=== PATIENT | male | born 1990 | race Caucasian/White ===

== ENCOUNTER 2018-09-25 13:04 | Emergency (ER) | payer OTHER ==
[2018-09-25 13:23] VITALS: BP 104/65
--- NOTE | 2018-09-25 14:32 | UC ---
Hand/Wrist HPI - HPI Summary HPI Summary: 27 yo male injured right right in lab trying to open a autoclave. [place] he is right handed unable to supinate right wrist without pain pain is ulnar aspect - History Of Current Complaint Chief Complaint: UCUpperExtremity Stated Complaint: WRIST INJURY Time Seen by Provider: 09/25/18 14:16 Hx Obtained From: Patient Onset/Duration: Sudden Onset Severity Initially: Moderate Severity Currently: Mild Pain Intensity: 5 - with movement-declines analgesic Pain Scale Used: 0-10 Numeric Character Of Pain: Aching Aggravating Factor(s): Movement, Extension Alleviating Factor(s): Rest Associated Signs And Symptoms: Positive: Negative Related History: Dominant Hand Right Hands: 1 - tender - Allergies/Home Medications Allergies/Adverse Reactions: Allergies Allergy/AdvReac Type Severity Reaction Status Date / Time No Known Allergies Allergy Verified 09/25/18 13:24 Home Medications: Home Medications NK [No Home Medications Reported] 09/25/18 [History Confirmed 09/25/18] PMH/Surg Hx/FS Hx/Imm Hx Previously Healthy: Yes - Surgical History Surgical History: None - Family History Known Family History: Positive: Hypertension, Other - stomach CA - Social History Alcohol Use: None Substance Use Type: None Smoking Status (MU): Never Smoked Tobacco Review of Systems All Other Systems Reviewed And Are Negative: Yes Constitutional: Positive: Negative Skin: Positive: Negative Eyes: Positive: Negative ENT: Positive: Negative Respiratory: Positive: Negative Cardiovascular: Positive: Negative Gastrointestinal: Positive: Negative Genitourinary: Positive: Negative Motor: Positive: Negative Neurovascular: Positive: Negative Musculoskeletal: Positive: Arthralgia Neurological: Positive: Negative Psychological: Positive: Negative Physical Exam Triage Information Reviewed: Yes Appearance: Well-Appearing, No Pain Distress, Well-Nourished Vital Signs: Initial Vital Signs Temp 99 F 09/25/18 13:20 Pulse 82 09/25/18 13:20 Resp 18 09/25/18 13:20 BP 104/65 09/25/18 13:20 Pulse Ox 100 09/25/18 13:20 Vital Signs Reviewed: Yes Eyes: Positive: Conjunctiva Clear ENT: Positive: Hearing grossly normal. Negative: Nasal congestion, Nasal drainage, Trismus, Muffled voice, Hoarse voice Dental Exam: Normal Neck: Positive: Supple, Nontender Respiratory: Positive: Lungs clear, Normal breath sounds, No respiratory distress Cardiovascular: Positive: RRR, No Murmur Abdominal Exam: Normal Bowel Sounds: Positive: Present Musculoskeletal: Positive: ROM Intact, No Edema Neurological: Positive: Alert, Fatigued Psychological Exam: Normal Skin Exam: Normal Diagnostics - Radiology right wrist Radiology Interpretation Completed By: Radiologist Summary of Radiographic Findings: no fx Hand/Wrist Course/Dx - Differential Dx/Diagnosis Provider Diagnosis: Right wrist sprain Discharge - Sign-Out/Discharge Documenting (check all that apply): Patient Departure All imaging exams completed and their final reports reviewed: Yes - Discharge Plan Condition: Stable Disposition: HOME Patient Education Materials: Wrist Sprain (ED) Referrals: Isiah Romo MD [Medical Doctor] - As Soon As Possible Additional Instructions: splint advil or aleve if needed for pain I suggest you see an orthopedist in follow up No fracture was noted but you may have an injury to your TFCC (trianular fibro cartilage complex) - Billing Disposition and Condition Condition: STABLE Disposition: Home
== END 2018-09-25 15:13 | disposition home or self-care (01) ==
LOC: UCEAST 13:04
DX: S63.501A Unspecified sprain of right wrist, initial encounter (principal); X50.9XXA Other and unspecified overexertion or strenuous movements or postures, initial encounter; Y92.9 Unspecified place or not applicable
CPT/HCPCS: 99202; G0463